=== PATIENT | male | born 1965 | race African-American/Black ===

== ENCOUNTER 2019-07-14 10:22 | Emergency (ER) | payer SELFPAY ==
--- NOTE | 2019-07-14 10:31 | EDM.PDOC ---
ED HPI GENERAL MEDICAL PROBLEM - General Stated Complaint: COUGHING UP BLOOD Time Seen by Provider: 07/14/19 10:24 Source of Information: Reports: Patient History Limitations: Reports: No Limitations - History of Present Illness INITIAL COMMENTS - FREE TEXT/NARRATIVE: HISTORY AND PHYSICAL: History of present illness: Patient is a 54-year-old male who presents to the emergency room today with complaints of cough, subjective fever and nasal congestion x4 to 5 days. He states that multiple persons at his work have had influenza. Has not had an influenza vaccine this year. He has a daily smoker although denies any history of lung disease. He has been taking multiple [id number] products without any relief. Patient denies any fever, chills, headache, change in vision, syncope or near syncope. Denies any chest pain, back pain, shortness of breath. Denies any GI or symptoms. Patient has been eating and drinking appropriately. Review of systems: As per history of present illness and below otherwise all systems reviewed and negative. Past medical history: As per history of present illness and as reviewed below otherwise noncontributory. Surgical history: As per history of present illness and as reviewed below otherwise noncontributory. Social history: See social history for further information Family history: As per history of present illness and as reviewed below otherwise noncontributory. Physical exam: General: Well-developed and well-nourished 54-year-old male. Alert and oriented. Nontoxic-appearing and in no acute distress. HEENT: Atraumatic, normocephalic, pupils equal and reactive bilaterally, negative for conjunctival pallor or scleral icterus, mucous membranes moist, TMs normal bilaterally, throat clear, neck supple, nontender, trachea midline. No drooling or trismus noted. No meningeal signs. No hot potato voice noted. Lungs: Clear to auscultation, breath sounds equal bilaterally, chest nontender. Heart: S1S2, regular rate and rhythm without overt murmur Abdomen: Soft, nondistended, nontender. Negative for masses or hepatosplenomegaly. Negative for costovertebral tenderness. Pelvis: Stable nontender. Skin: Intact, warm, dry. No lesions or rashes noted. Extremities: Atraumatic, moves all extremities per self without difficulty or deficits, negative for cords or calf pain. Neurovascular unremarkable. Neuro: Awake, alert, oriented. Cranial nerves II through XII unremarkable. Cerebellum unremarkable. Motor and sensory unremarkable throughout. Exam nonfocal. Notes: Negative influneza screening. Due to history of smoking and symptom will treat will Boubacar-sunitha. Supportive care measures were reviewed and discussed. Voices understanding and is agreeable to plan of care. Denies any further questions or concerns at this time. Diagnostics: CXR, influenza Therapeutics: None Prescription: Zpak & ProAir Inhaler Impression: Bronchitis Plan: 1. Stop smoking. 2. Take medications as directed. 3. Follow up with primary care provider. Return to the ED as needed as discussed. Definitive disposition and diagnosis as appropriate pending reevaluation and review of above. Chest Pain Score (Numeric/FACES): 8 - Related Data Allergies Allergy/AdvReac Type Severity Reaction Status Date / Time No Known Allergies Allergy Verified 07/14/19 10:44 Home Meds: Home Meds . [No Known Home Meds] 07/14/19 [History] ED ROS ENT - Review of Systems Review Of Systems: Comprehensive ROS is negative, except as noted in HPI. ED EXAM, ENT - Physical Exam Exam: See Below (See dictation) Course - Vital Signs Last Recorded V/S: Last Vital Signs Temp 96.9 F 07/14/19 10:45 Pulse 75 07/14/19 10:45 Resp 17 07/14/19 10:45 BP 132/91 H 07/14/19 10:45 Pulse Ox 97 07/14/19 10:45 - Orders/Labs/Meds Orders: Active Orders 24 hr Category Date Time Status Chest 2V [CR] Stat Exams 07/14/19 10:28 Ordered Departure - Departure Time of Disposition: 11:21 Disposition: Home, Self-Care 01 Clinical Impression: Bronchitis - Discharge Information Instructions: Acute Bronchitis, Adult, [id number] Referrals: PCP,None [Primary Care Provider] - Additional Instructions: The following information is given to patients seen in the emergency department who are being discharged to home. This information is to outline your options for follow-up care. We provide all patients seen in our emergency department with a follow-up referral. The need for follow-up, as well as the timing and circumstances, are variable depending upon the specifics of your emergency department visit. If you don't have a primary care physician on staff, we will provide you with a referral. We always advise you to contact your personal physician following an emergency department visit to inform them of the circumstance of the visit and for follow-up with them and/or the need for any referrals to a consulting specialist. The emergency department will also refer you to a specialist when appropriate. This referral assures that you have the opportunity for follow-up care with a specialist. All of these measure are taken in an effort to provide you with optimal care, which includes your follow-up. Under all circumstances we always encourage you to contact your private physician who remains a resource for coordinating your care. When calling for follow-up care, please make the office aware that this follow-up is from your recent emergency room visit. If for any reason you are refused follow-up, please contact the [facility] at and asked to speak to the emergency department charge nurse. [facility] [address] [place] [id number] [facility] [address] [place] [id number] 1. Stop smoking. 2. Take medications as directed. 3. Follow up with primary care provider. Return to the ED as needed as discussed. Sepsis Event Note - Focused Exam Vital Signs: Vital Signs Temp Pulse Resp BP Pulse Ox 07/14/19 10:45 96.9 F 75 17 132/91 H 97 Date Exam was Performed: 07/14/19 Time Exam was Performed: 11:20 - My Orders Last 24 Hours: My Active Orders 07/14/19 10:28 Chest 2V [CR] Stat - Assessment/Plan Last 24 Hours: My Active Orders 07/14/19 10:28 Chest 2V [CR] Stat
--- NOTE | 2019-07-14 11:38 | CR ---
EXAM DATE: 07/14/19 PATIENT'S AGE: 54 Chest: Two views of the chest were obtained. Comparison: No prior chest imaging. Heart size is normal. Tortuous thoracic aorta is noted. Diaphragms are slightly flattened on the lateral view. No acute parenchymal change is seen. Bony structures are grossly intact. Impression: 1. Probable emphysematous change. Please correlate that patient is a smoker. 2. Nothing acute is otherwise seen on two view chest x-ray. Diagnostic code #2 This report was dictated in [place] Standard Time Report Signed by Proxy. [facility]
== END 2019-07-14 11:36 | disposition home or self-care (01) ==
LOC: MW.ED 10:22
DX: J40 Bronchitis, not specified as acute or chronic (principal)
CPT/HCPCS: 71046; 71046-26; 87804; 99283-25